=== PATIENT | male | born 1945 | race Two or more races ===

== ENCOUNTER 2025-01-05 15:49 | Outpatient (AMB) | payer MEDICARE, SELFPAY ==
--- OUTSIDE RECORDS SUMMARY | 2025-01-05 15:52 | XMS_ITS | Clinical Summary ---
Author Organization [facility] Address [address] [place] [address] Care Team Providers Care Shaper Machine Hand Name Role Phone Chester Lora MD Primary Care Provider [phone] Allergies No known active allergies Medications Medication Sig Dispensed Refills Start Date End Date Status tadalafil (CIALIS) 5 MG tablet Take 5 mg by mouth daily as needed for erectile dysfunction. 0 Active aspirin EC 81 MG tablet Take 81 mg by mouth daily. 0 Active pravastatin (PRAVACHOL) tablet 40 mg Take 40 mg by mouth daily. 0 Active sertraline (ZOLOFT) 100 MG tablet Take 100 mg by mouth daily. 0 Active venlafaxine (EFFEXOR) 100 MG tablet Take 100 mg by mouth 2 (two) times a day. 0 Active lisinopril 20 MG TABS 1 tablet, hydrochlorothiazide 12.5 MG CAPS 1 capsule Take 1 tablet by mouth daily. 0 Active traZODone (DESYREL) 25 MG split tablet Take 50 mg by mouth every night at bedtime. 0 Active zolpidem (AMBIEN) 5 MG tablet Take 5 mg by mouth every night at bedtime as needed for sleep. 0 Active memantine (NAMENDA) 5 MG tablet Take 5 mg by mouth 2 (two) times a day. 0 Active ibuprofen (ADVIL,MOTRIN) 600 MG tablet Take 600 mg by mouth every 6 (six) hours as needed for pain. 0 Active meloxicam (MOBIC) 7.5 MG tablet 0 06/21/2017 Active acetaminophen-codeine (TYLENOL #3) 300-30 MG per tablet 0 06/10/2017 Active oxyCODONE (ROXICODONE) 5 MG immediate release tablet 0 08/08/2017 Active Hospital, Clinic, or Other Facility Administered Medication Ordered Dose Route Frequency Start Date End Date Status methylPREDNISolone acetate (DEPO-Medrol) injection 40 mgIndications:Chronic right shoulder pain,Subacromial tendonitis of right shoulder 40 mg IX Once 05/19/2018 Active Active Problems Problem Noted Date Diagnosed Date Postop check 08/27/2017 Incomplete tear of right rotator cuff 07/17/2017 Acute pain of right shoulder 07/17/2017 Shoulder impingement, right 07/17/2017 Social History Tobacco Use Types Packs/Day Years Used Date Smoking Tobacco: Never Assessed Sex and Gender Information Value Date Recorded Sex Assigned at Not on file Gender Identity Not on file Sexual Orientation Not on file Job Start Date Occupation Industry Not on file Not on file Not on file Last Filed Vital Signs Vital Sign Reading Time Taken Comments Blood Pressure - - Pulse - - Temperature - - Respiratory Rate - - Oxygen Saturation - - Inhaled Oxygen Concentration - - Weight 78.5 kg (173 lb) 08/08/2017 1:02 PM EST Height 167.6 cm (5' 6 ) 08/08/2017 1:02 PM EST Body Mass Index 27.92 08/08/2017 1:02 PM EST Plan of Treatment Health Maintenance Due Date Last Done Comments Hepatitis C Screening 1945 COVID-19 Vaccine (#1) 05/21/1946 Depression Screening 1957 Preventative Health Evaluation 11/19/1963 DTap / Tdap / Td (1 - Tdap) 1964 Shingrix-Zoster Vaccine (1 of 2) 11/19/1995 Fall Risk Assessment 2010 Pneumococcal Vaccine (1 of 1 - PCV) 2010 RSV Adult > 60+ Yrs or Pregn ant (1 - 1-dose 75+ series) 2020 Influenza Vaccine (#1) 2025 Hepatitis B Vaccines Aged Out No long er eligible based on patient's age to complete this topic RSV Ped < 20 months Aged Out No longe r eligible based on patient's age to complete this topic Care Teams Shaper Machine Hand Relationship Specialty Start Date End Date Chester Lora MD PCP - General Internal Medicine 07/07/17
--- OUTSIDE RECORDS SUMMARY | 2025-01-05 15:52 | XMS_ITS | Clinical Summary ---
Author Organization [facility] [address] [facility] Address [address] [place] [address] [place] [address] Phone Care Team Providers Care Poultry Farmworker Name Role Phone Jeffry Espinal MD Primary Care Provider Allergies No known active allergies Medications memantine (NAMENDA) 10 mg tablet Take 1 tablet (10 mg total) by mouth 2 (two) times a day. 4 Active OneTouch Ultra2 Meter misc 1 each by Other route 1 (one) time each day. 4 Active OneTouch Ultra Test test strip 1 each by Other route 1 (one) time each day. 4 Active lancets (OneTouch Delica Plus Lancet) 33 gauge 1 each by Other route 1 (one) time each day. 4 Active vit A/vit C/vit E/zinc/copper (PRESERVISION AREDS ORAL) Take 1 tablet by mouth 1 (one) time each day. Active aspirin 81 mg EC tablet Take 1 tablet (81 mg total) by mouth 1 (one) time each day. For 180 days 30 each 5 5 01/30/20 25 Active lisinopriL (PRINIVIL,ZESTR IL) 20 mg tablet Take 1 tablet by mouth once daily 90 tablet 1 5 Active mirtazapine (REMERON) 15 mg tablet TAKE 1 TABLET BY MOUTH AT BEDTIME NEEDED FOR INSOMNIA 90 tablet 1 5 Active buPROPion XL (WELLBUTRIN XL) 300 mg 24 hr tablet TAKE 1 TABLET BY MOUTH ONCE DAILY IN THE MORNING 90 tablet 1 5 Active pravastatin (PRAVACHOL) 40 mg tablet Take 1 tablet (40 mg total) by mouth 1 (one) time each day. 90 tablet 1 5 Active polyethylene glycol (PEG) 17 gram/dose oral powder Take 17 g by mouth 1 (one) time each day. 530 g 1 5 Active docusate sodium (COLACE) 100 mg capsule Take 1 capsule (100 mg total) by mouth 2 (two) times a day. 180 each 1 5 Active tamsulosin (FLOMAX) 0.4 mg 24 hr capsule Take 1 capsule (0.4 mg total) by mouth 1 (one) time each day. Take 30 mins after same meal every day. 90 capsule 1 5 Active tamsulosin (FLOMAX) 0.4 mg 24 hr capsule Take 1 capsule (0.4 mg total) by mouth 1 (one) time each day. Take 30 mins after same meal every day. 4 12/30/19 25 Discontinu ed(Reorder ) polyethylene glycol (PEG) 17 gram/dose oral powder Take 17 g by mouth 1 (one) time each day. 4 12/30/19 25 Discontinu ed(Reorder ) docusate sodium (COLACE) 100 mg capsule Take 1 capsule (100 mg total) by mouth 2 (two) times a day. 4 12/30/19 25 Discontinu ed(Reorder ) pravastatin (PRAVACHOL) 40 mg tablet Take 1 tablet (40 mg total) by mouth 1 (one) time each day. 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 ([facility] V24, [facility] V28) 07/25/2023 PAD (peripheral artery disease) ([facility] V24) Prediabetes 07/25/2023 Primary hypertension 07/25/2023 Skin cancer 07/25/2023 Stage 3 chronic kidney disease ([facility] V24, [facility] V28) 07/25/2023 Encounters Date Type Department Care Team Description 12/29/2024 1:30 PM EDT Office Visit Adult Medicine [address] [phone] Jeffry Espinal MD Primary hypertension (Primary Dx); Chronic anemia; PAD (peripheral artery disease) ([facility] V24); Mixed hyperlipidemia; Stage 3a chronic kidney disease ([facility] V24, [facility] V28); Prediabetes; Benign prostatic hyperplasia without lower urinary tract symptoms; Chronic midline low back pain without sciatica; 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 ([facility] V24, [facility] V28); Anxiety and depression from Last 3 Months Immunizations Name Administration Dates Next Due Influenza Quadravalent, 0.5m l (Fluzone High-dose) 65yo and older 05/08/2022,04/30/2021,02/09/2020 Influenza trivalent, with pr eservative (Fluzone; Afluria) 6mo and older 05/06/2024 Pfizer (ages 12 & older) JUAN S-CoV-2 COVID-19, mRNA, LNP-S, shon-sucrose, preservative free 11/08/2021 Pneumococcal conjugate 13 va lent (Prevnar 13, PCV13) 2mo and older 03/16/2015 Pneumococcal polysaccharide 23 valent (Pneumovax 23) 2yo and older 11/24/2015,09/19/2006 Pneumococcal, Unspecified 09/19/2006 Td Tetanus diptheria, preser vative free (Tenivac) 7yo and older 12/29/2024 Surgical History Surgery Date Site/Laterality Comments OTHER SURGICAL HISTORY PROCEDURE: IN DIR RPR ANEURYSM & GRAFT ILIAC ARTERY HERNIA REPAIR PROCEDURE: HISTORICAL HERNIA REPAIR/ING SHOULDER SURGERY Right PROCEDURE: HISTORICAL SHOULDER SURGERY Medical History Medical History Date Comments Dementia due to Alzheimer's disease ([facility] V24, [facility] V28) DX: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 ([facility]) HTN (hypertension) DX:HTN (hyper tension) Prediabetes DX:Prediabetes Mixed hyperlipidemia DX:Mixed hy perlipidemia Anxiety and depression DX:Anxiet y and depression PAD (peripheral artery disea se) ([facility] V24) DX:PAD (peripheral artery di sease) ([facility]) BPH (benign prostatic hyperplasia) DX:BPH (benign prostatic hyperplasia) CKD (chronic kidney disease) stage 3, GFR 30-59 ml/min ([facility] V24, [facility] V28) DX:CKD (chronic kidney disea se) stage 3, GFR 30-59 ml/min ([facility]) Skin cancer DX:Skin cancer Backache DX:Backache Family History Medical History Relation Name Comments Other cancer Neg Hx Social History Tobacco Use Types Packs/Day Years Used Date Smoking Tobacco: Former Smokeless Tobacco: Never Tobacco Cessation:Counseling Given: Not Answered Alcohol Use Standard Drinks/Week Comments Never 0 (1 standard drink = 0.6 oz pur e alcohol) Sex and Gender Information Value Date Recorded Sex Assigned at Not on file Legal Sex Male 8:50 PM EST Gender Identity Not on file Sexual Orientation Not on file Obstetrics History Last Filed Vital Signs Vital Sign Reading Time Taken Comments Blood Pressure 124/69 12/29/2024 1:16 PM EDT Pulse 58 12/29/2024 1:16 PM EDT Temperature 36.6 C (97.8 F) 08/02/2024 3:53 PM EST Respiratory Rate 16 08/02/2024 3:53 PM EST Oxygen Saturation - - Inhaled Oxygen Concentration - - Weight 78 kg (172 lb) 12/29/2024 1:16 PM EDT Height 160 cm (5' 3 ) 12/29/2024 1:16 PM EDT Body Mass Index 30.47 12/29/2024 1:16 PM EDT Plan of Treatment Upcoming Encounters Date Type Department Care Team (Late st Contact Info) Description 02/03/2025 3:30 PM EDT Office Visit Nephrology [address] [phone] Benjamín Membreno MD [address] [phone] 07/04/2025 3:30 PM EST Office Visit Adult Medicine [address] [phone] Jeffry Espinal MD [address] [place] [phone] Health Maintenance Due Date Last Done Comments Zoster Vaccines (1 of 2) 1964 RSV Immunization Adult Patients (1 - 1-dose 75+ series) 2020 Depression Screening 05/25/2022 Falls Risk Assessment 05/25/2022 Hepatitis C Screening 05/25/2022 Medicare Annual Wellness Visit 05/25/2022 Social Influencers of Health Screening 05/25/2022 COVID-19 Vaccine (6 - Pfizer risk season) 2024 05/06/2024, 11/08/2021, 03/20/2021, Additional history exists Influenza Vaccine (#1) 2025 , 05/08/2022, 04/30/2021, Additional history exists Hypertension/CHF/CAD Annual BMP Blood Test 12/29/2025 12/29/2024, 08/02/2024, 02/25/2024, Additional history exists Cholesterol Screening (Lipid Panel) 08/07/2028 08/07/2023 DTaP,Tdap,and Td Vaccines (2 - Td or Tdap) 12/29/2034 12/29/2024 Pneumococcal Vaccine: 50+ Years Completed 11/24/2015, 03/16/2015, 09/19/2006, Additional history exists HIB Vaccines Aged Out No longer eligi ble based on patient's age to complete this topic HPV Vaccines Aged Out No longer eligi ble based on patient's age to complete this topic Hepatitis A Vaccines Aged Out No long er eligible based on patient's age to complete this topic Hepatitis B Vaccines Aged Out No long er eligible based on patient's age to complete this topic IPV Vaccines Aged Out No longer eligi ble based on patient's age to complete this topic MMR Vaccines Aged Out No longer eligi ble based on patient's age to complete this topic Meningococcal ACWY Vaccine Aged Out N o longer eligible based on patient's age to complete this topic Meningococcal B Vaccine Aged Out No l onger eligible based on patient's age to complete this topic RSV Immunization Patients Under 20 months Aged Out No longer eligible based on patient's age to complete this topic Varicella Vaccines Aged Out No longer eligible based on patient's age to complete this topic Procedures Procedure Name Priority Date/Time Associated Diagnosis Comments CBC WITH AUTO DIFFERENTIAL Routine 12/29/2024 2:12 PM EDT Chronic anemia PARATHYROID HORMONE INTACT Routine 12/29/2024 2:12 PM EDT Stage 3 chronic kidney disease, unspecified whether stage 3a or 3b CKD ([facility] V24, [facility] V28) VITAMIN D 25 HYDROXY Routine 12/29/2024 2:12 PM EDT Stage 3 chronic kidney disease, unspecified whether stage 3a or 3b CKD ([facility] V24, [facility] V28) CBC AND DIFFERENTIAL Routine 12/29/2024 2:12 PM EDT Chronic anemia BASIC METABOLIC PANEL Routine 12/29/2024 2:12 PM EDT Stage 3a chronic kidney disease ([facility] V24, [facility] V28) LIPID PANEL Routine 08/07/2023 from Last 3 Months or Most Recently Relevant to Health Maintenance Results * (ABNORMAL) CBC auto differential (12/29/2024 2:12 PM EDT) [facility] Signature WBC 9.7 4.8 - 10.8 K/mcL LAB HEMETOLOGY METHOD 12/29/2024 4:37 PM EDT [facility] RBC 4.30(L) 4.50 - 5.50 M/mcL LAB HEMETOLOGY METHOD 12/29/2024 4:37 PM EDT [facility] Hemoglobin 14.0 13.5 - 17.5 g/dL LAB HEMETOLOGY METHOD 12/29/2024 4:37 PM EDT [facility] Hematocrit 43.0 42.0 - 54.0 % LAB HEMETOLOGY METHOD 12/29/2024 4:37 PM EDT [facility] MCV 100.5(H) 79.0 - 98.0 FL LAB HEMETOLOGY METHOD 12/29/2024 4:37 PM EDT [facility] MCH 32.7(H) 27.0 - 32.0 pcg LAB HEMETOLOGY METHOD 12/29/2024 4:37 PM EDT [facility] MCHC 32.6 32.0 - 37.0 g/dL LAB HEMETOLOGY METHOD 12/29/2024 4:37 PM EDT [facility] RDW 13.2 11.0 - 15.0 % LAB HEMETOLOGY METHOD [facility]24 [facility] Platelets 188 130 - 400 K/mcL LAB HEMETOLOGY METHOD 12/29[facility]2024 4:[facility] MPV 11.2(H) 7.0 - 11.0 FL LAB HEMETOLOGY METHOD 12/29/2024 4:37 PM EDT [facility] NRBC 0.0 <1.0 % LAB HEMETOLOGY METHOD 12/29/2024 4:37 [facility] NRBC Absolute 0.00 <0.10 K/mcL LAB HEMETOLOGY METHOD 12/29/2024 4:37 PM EDT [facility] Neutrophils Relative 74.1 % LAB HEMETOLOGY METHOD 12/29/2024 4:37 PM EDT [facility] Lymphocytes Relative 14.2 % LAB HEMETOLOGY METHOD 12/29/2024 4:37 [facility] Monocytes Relative 6.7 % LAB HEMETOLOGY METHOD 12/29/2024 4:37 PM EDT [facility] Eosinophils Relative 3.4 % LAB HEMETOLOGY METHOD 12/29/2024 4:37 PM EDT [facility] Basophils Relative 1.0 % LAB HEMETOLOGY METHOD 12/29/2024 4:37 PM EDT [facility] Immature Granulocytes Relative 0.6 % LAB HEMETOLOGY METHOD 12/29/2024 4:37 PM EDT [facility] Neutrophils Absolute 7.15(H) 1.50 - 7.00 K/mcL LAB HEMETOLOGY METHOD 12/29/2024 4:37 PM EDT [facility] Lymphocytes Absolute 1.37 1.00 - 5.00 K/mcL LAB HEMETOLOGY METHOD 12/29/2024 4:37 PM EDT [facility] Monocytes Absolute 0.65 0.20 - 1.00 K/mcL LAB HEMETOLOGY METHOD 12/29/2024 4:37 PM EDT [facility] Eosinophils Absolute 0.33 0.00 - 0.50 K/mcL LAB HEMETOLOGY METHOD 12/29/2024 4:37 PM EDT [facility] Basophils Absolute 0.10 0.00 - 0.20 K/mcL LAB HEMETOLOGY METHOD 12/29/2024 4:37 PM EDT [facility] Immature Granulocytes Absolute 0.06(H) 0.00 - 0.03 K/mcL LAB HEMETOLOGY METHOD 12/29/2024 4:37 PM EDT [facility] Blood Venous blood specimen / Unknown Venipuncture / Unknown 12/29/2024 2:12 PM EDT 12/29/2024 2:12 PM EDT us Jeffry Espinal MD LAB BLOOD ORDERABLES Final Result [facility] [address] [place] [address], * Vitamin D 25 hydroxy (12/29/2024 2:12 PM EDT) Vit D, 25-Hydroxy 31.5 30.0 - 80.0 ng/mL LAB CHEMISTRY METHOD 12/29/2024 5:40 PM EDT [facility] Blood Venous blood specimen / Unknown Venipuncture / Unknown 12/29/2024 2:12 PM EDT 12/29/2024 2:12 PM EDT us Sharan Monique MD LAB BLOOD ORDERABLES Final Resu lt Performing Organization Address [facility]/ZIP Co de Phone Number [facility] [address] [place] [address], [place] [phone] * (ABNORMAL) Parathyroid hormone intact (12/29/2024 2:12 PM EDT) Pathologist [facility] PTH 109.3(H) 18.5 - 88.0 pcg/mL LAB CHEMISTRY METHOD 12/29/2024 7:31 PM EDT [facility] Blood Venous blood specimen / Unknown Venipuncture / Unknown 12/29/2024 2:12 PM EDT 12/29/2024 2:12 PM EDT us Sharan Monique MD LAB BLOOD ORDERABLES Final Resu lt Performing Organization Address [facility]/ZIP Co de Phone Number [facility] [address] [place] [address], [place] [phone] * (ABNORMAL) Basic metabolic panel (12/29/2024 2:12 PM EDT) Pathologist [facility] Sodium 137 133 - 145 mmol/L LAB CHEMISTRY METHOD 12/29/2024 5:12 PM EDT [facility] Potassium 4.6 3.5 - 5.5 mmol/L LAB CHEMISTRY METHOD 12/29/2024 5:12 PM EDT [facility] Chloride 101 96 - 110 mmol/L LAB CHEMISTRY METHOD 12/29/2024 5:12 PM EDT [facility] CO2 29 21 - 32 mmol/L LAB CHEMISTRY METHOD 12/29/2024 5:12 PM T [facility] Anion Gap 7 3 - 11 LAB CHEMISTRY METHOD 12/29/2024 5:12 PM [facility] Glucose 118(H) 70 - 100 mg/dL LAB CHEMISTRY METHOD 12/29[facility]2024 5:[facility] BUN 23 5 - 25 mg/dL LAB CHEMISTRY METHOD 12/29/2024 5:12 PM [facility] Creatinine 1.47(H) 0.70 - 1.30 mg/dL LAB CHEMISTRY METHOD 12/29/2024 5:12 PM [facility] eGFR 48(L) >=60 mL/min/1. 73m2 LAB CHEMISTRY METHOD 12/29/2024 5:12 PM [facility] Comment:Calculation based on the Chronic Kidney Disease Epidemiology Collaboration (CKD-EPI) equation refit without adjustment for race. BUN/Creatinine Ratio 15.6 LAB CHEMISTRY METHOD 12/29/2024 5:12 PM [facility] Calcium 10.2 8.5 - 10.5 mg/dL LAB CHEMISTRY METHOD 12/29/2024 5:12 PM [facility] Blood Venous blood specimen / Unknown Venipuncture / Unknown 12/29/2024 2:12 PM EDT 12/29/2024 2:12 PM EDT us Jeffry Espinal MD LAB BLOOD ORDERABLES Final Result [facility] [address] [place] [address], * (ABNORMAL) Lipid panel (08/07/2023) LDL/HDL Ratio 3 0 - 4 Triglycerides 165(A) 0 - 150 mg/dL Cholesterol 175 0 - 200 mg/dL HDL 53 >=40 mg/dL LDL Cholesterol 89 0 - 100 mg/dL Blood Venous blood specimen / Unknown us Historical Provider LAB BLOOD ORDERABLES Esperanza hernandez Result from Last 3 Months or Most Recently Relevant to Health Maintenance Insurance [employer] Care Teams Poultry Farmworker Relationship Specialty Start Date End Date Jeffry Espinal MD [address] [place] [address] [phone] PCP - General 06/10/23
--- NOTE | 2025-01-05 15:55 | MHC.OFFVIS ---
Intake Visit Reasons: 6 month Allergies No Known Allergies Allergy (Verified 01/03/25 13:05) Medication List - Last Reconciled 01/05/25 by Briseyda Marin MD aspirin (Adult Aspirin Regimen) 81 mg PO DAILY bupropion HCl XL 300 mg PO DAILY hydroxyzine HCl 25 - 75 mg PO BEDTIME PRN lisinopril 20 mg PO DAILY memantine 10 mg PO BID oxybutynin chloride 5 mg PO DAILY pravastatin 40 mg PO DAILY tamsulosin 0.4 mg PO BEDTIME HPI Comments Details: 78 yr old man with advancing AD managed at home by his . Occasionally needs a sedative. He has been stable and behavior is better. Less agitation. Some days worse than others, has thrown and broken objects. No longer resistant to taking medication at times. Will sometimes think people on TV are watching him. Does not want to be away from . Had increased agitated with the Rivastigmine so they stopped it 3 days later. Memory has been worsening since 01/2023/ Does not do anything. Watches TV and may understand some of it. He does better if he gets enough rest. He is worse if he gets nervous and then he shuts off. He has a 6-8 -year history of not being clear in his head and not being able to think clearly being absent-minded and forgetful. 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 [facility] [place] Medical History (Updated 01/05/25 @ 16:11 by Briseyda Marin MD) Depression Alzheimer dementia MCI (mild cognitive impairment) Anxiety Hypercholesterolemia Hypertension Physical Exam Neuro Other: Mini Mental Status Exam: Level of Consciousness:??Alert.?Orientation:??Does not know correct year, month . Does not know correct city, county and state. Knows correct location and floor.?Registration:??Able to register 3 objects.?Attention:??Serial 7's unable.?Recall:??Able to recall?0 out of 3 objects.?Language:??hesitant speech.?Total Score:??<15/30.? General Examination: GENERAL APPEARANCE:??normal,?in no acute distress.?HEAD:??normocephalic,?atraumatic.?EYES:??sclera non-icteric,?conjunctiva clear.?EARS:??auditory canal clear,?tympanic membrane intact, clear.?NOSE:??no lesions.?ORAL CAVITY:??gums normal,?mucosa moist,?no lesions.?THROAT:??clear.?NECK/THYROID:??no cervical lymphadenopathy,?thyroid normal,?neck supple, full range of motion,?no carotid bruit.?SKIN:??no rashes,?no significant birthmarks.?HEART:??S1, S2 normal,?no murmurs.?LUNGS:??clear anteriorly and posteriorly.?CHEST:??no gross rib deformity,?clear to auscultation.?BACK:??normal exam of spine.?EXTREMITIES:??no edema.?PERIPHERAL PULSES:??normal.?PSYCH:??as above.? Unable to complete due to televisit. Neurological: Abnormal neurological findings:??MMS <?15/30?.?Mental Status:??as above.?Cranial Nerves:??Pupils are equal, round and reactive to light. Fundoscopy shows normal disc bilaterally. External occular muscles are intact. Visual wilson are full, no ptosis. Face is symmetrical, no facial weakness or droop. Facial sensations are normal. Tongue protrudes in midline. Palate elevates symmetrically. Shoulder shrugging is normal..?Motor Examination:??Normal muscle tone, bulk and strength,?No atrophy or fasciculations,?No drift of the extended upper extremities,?Deep tendon reflexes are 2+?,?Plantars are flexor?.?Straight Leg Raising:??90 degrees.?Sensory Exam:??Normal light touch, temperature, pinprick, vibration and joint-position sensations?,?Rhomberg sign is absent.?Coordination:??no ataxia,?no titubation,?[id number]-[id number], bmqc-ciiy-wopm test and rapid alternating movements were normal.?Gait Exam:??Within normal limits.?Cerebellar Signs:??Oxbcpr-ip-nldn and maqq-oz-lolx is normal,?no dysdiadochokinesia?.?Extrapyramidal System:??No tremor, rigidity with normal facial expressions,?No bradykinesia, no bradyphrenia. Normal arm swing and posture. No propulsion or retropulsion.?Speech:??Normal,?no dysphasia or dysarthria..? 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 Trial of Risperidone 0.5 mg hs for hypersexuality. 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
== END 2025-01-05 16:15 | disposition home or self-care (01) ==
LOC: HO.HSM 15:50
PROVIDERS: PCP Internal Medicine; Referring Provider Internal Medicine; Visit Provider Psychiatry & Neurology Neurology
DX: G30.9 Alzheimer's disease, unspecified (principal); F02.80 Dementia in other diseases classified elsewhere, unspecified severity, without behavioral disturbance, psychotic disturbance, mood disturbance, and anxiety; F52.8 Other sexual dysfunction not due to a substance or known physiological condition
CPT/HCPCS: 99214

== ENCOUNTER → 2025-01-05 15:49 | Outpatient (BNVA) | payer MEDICARE, SELFPAY | PROVIDERS: PCP Internal Medicine; Referring Provider Internal Medicine; Visit Provider Psychiatry & Neurology Neurology | DX: G30.9 Alzheimer's disease, unspecified (principal); F02.80 Dementia in other diseases classified elsewhere, unspecified severity, without behavioral disturbance, psychotic disturbance, mood disturbance, and anxiety; F52.8 Other sexual dysfunction not due to a substance or known physiological condition | CPT/HCPCS: 99212 ==